=== PATIENT | male | born 1940 | race Caucasian/White ===

== ENCOUNTER 2017-06-02 18:29 | Emergency (ER) | payer MEDICARE, OTHER ==
[~2017-06-02 18:29] MED LIST: CARBINOXAMINE MA4 MG PO; CYPROHEPTADINE H4 MG PO; HYDRALAZINE HCL10 MG PO; HYDRALAZINE HCL25 MG PO; HYDROXYZINE HCL25 MG PO; LOTREL; MECLIZINE HCL25 MG PO; OMEGA 3 1,0001 EACH; SIMVASTATIN; SLOW FE PO; VITAMIN D; Z.0.AMLODIPINE BESYL PO; Z.0.KEFLEX500 MG; Z.0.MULTAQ400 MG PO; Z.0.PROTONIX40 MG PO; Z.0.SIMVASTATIN10 MG PO; Z.0.TOPROL XL25 MG PO; [UNRECOGNIZED DRUG - OTHER] PO; [UNRECOGNIZED DRUG - OTHER] PO; [UNRECOGNIZED DRUG - OTHER] PO
== END 2017-06-02 18:40 | disposition short-term general hospital (02) ==
LOC: ER 18:29
DX: R58 Hemorrhage, not elsewhere classified (principal)

== ENCOUNTER → 2017-10-06 | Outpatient (CLI) | payer MEDICARE, OTHER ==
--- NOTE | 2017-10-06 12:10 | Diagnostic Imaging Report ---
PROCEDURE: Frontal and lateral views of the chest. COMPARISON: Chest radiograph 07/07/[address] 11/16/2010 INDICATIONS: FALL, CHEST PAIN FINDINGS: Lines/tubes: None. Lungs: The lungs are well inflated. Previously noted nodular opacity noted over the left lung base is currently not well-visualized. Stable right upper lobe calcified granuloma. There is no evidence of pneumonia or pulmonary edema. Pleura: There is no pleural effusion or pneumothorax. Heart and mediastinum: The heart and the mediastinum are normal. Bones: No acute bony abnormality. Lower cervical fusion hardware. A linear radiopaque density projects over the left upper chest which is located in the medial upper anterior chest wall on CT likely representing an abandoned portion of a catheter. IMPRESSION: No acute cardiopulmonary disease. Dictated by: Junior Malave M.D. on 10/06/2017 at 12:15 Electronically approved by: Junior Malave M.D. on 10/06/2017 at 12:15
--- NOTE | 2017-10-06 12:18 | Diagnostic Imaging Report ---
PROCEDURE:HIP LEFT 2-3 VW (+/- PELVIS) COMPARISON:None. INDICATIONS:FALL, LEFT HIP PAIN FINDINGS: BONES: Normal mineralization. No acute fracture or dislocation. Mild degenerative changes of the left hip. SOFT TISSUES: Vascular calcifications. Numerous surgical clips in the pelvis. CONCLUSION: No acute osseous abnormalities. Dictated by: Junior Malave M.D. on 10/06/2017 at 12:22 Electronically approved by: Junior Malave M.D. on 10/06/2017 at 12:22
--- NOTE | 2017-10-06 12:23 | Diagnostic Imaging Report ---
PROCEDURE:L-SPINE COMPLETE COMPARISON:Lumbar spine MRI 07/27/2016 INDICATIONS:FALL, LOWER BACK PAIN FINDINGS: There are 5 lumbar-type vertebral bodies. 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 There are no fractures, lytic or blastic lesions. Mild to moderate disc space narrowing at all levels, worse from L3-S1. The sacroiliac joints are unremarkable. Numerous surgical clips within the pelvis. Diffuse vascular calcifications. A few punctate calcifications projecting over the left renal silhouette may represent renal calculi or vascular calcifications. CONCLUSION: No acute osseous abnormalities. Stable grade II anterolisthesis of L5 on S1 when compared to MRI 07/27/2016 related to bilateral L5 pars defects. ictated by: Junior Malave M.D. on 10/06/2017 at 12:28 Electronically approved by: Junior Malave M.D. on 10/06/2017 at 12:28
== END ==
LOC: RAD 10:57
PROVIDERS: ATTEND Internal Medicine Cardiovascular Disease
DX: M25.552 Pain in left hip (principal); M54.5 Low back pain; R07.9 Chest pain, unspecified; R51 Headache; W18.39XA Other fall on same level, initial encounter
CPT/HCPCS: 71046; 72110

== ENCOUNTER 2019-05-16 09:51 | Outpatient (RCR) | payer MEDICARE, BC | END 2019-06-01 | LOC: ST 09:51 | PROVIDERS: ATTEND Internal Medicine | DX: R47.1 Dysarthria and anarthria (principal); R47.9 Unspecified speech disturbances ==

== ENCOUNTER 2020-06-02 11:26 | Inpatient (IN) | payer MEDICARE, OTHER ==
[~2020-06-02] VITALS: Ht 177.8 cm; Wt 83.9 kg
[~2020-06-02 11:26] MED LIST changes: -OMEGA 3 1,0001 EACH; +OMEGA 3 1,0001 EACH PO
[2020-06-02 13:06] LABS: BASOPHILS # (AUTO) 0.1 (0.0-0.1); BASOPHILS % 0.5 % (0.0-1.0); EOSINOPHILS # (AUTO) 0.5 (0.0-0.4); EOSINOPHILS % 4.5 % (0.0-6.0); HEMATOCRIT 38.1 % (38.2-49.6); HEMOGLOBIN 12.3 g/dL (14.0-18.0); LYMPHOCYTES # (AUTO) 1.4 (1.0-3.2); LYMPHOCYTES % 13.2 % (18.0-39.1); MEAN CORPUSCULAR HEMOGLOBIN 27.2 pg (28-32); MEAN CORPUSCULAR HGB CONC 32.3 g/dL (31-35); MEAN CORPUSCULAR VOLUME 84.3 fL (81-99); MONOCYTES # (AUTO) 0.9 (0.2-0.8); MONOCYTES % 8.6 % (4.4-11.3); NEUTROPHILS # (AUTO) 7.8 (2.1-6.9); NEUTROPHILS % 72.6 % (38.7-80.0); PLATELET COUNT 230 x10e3/uL (140-360); RED BLOOD COUNT 4.52 x10e6/uL (4.3-5.7); RED CELL DISTRIBUTION WIDTH 16.1 % (11.7-14.4)
[2020-06-02 13:31] LABS: ANION GAP 14.2 mmol/L (8-16); CALCIUM 8.9 mg/dL (8.4-10.2); CREATININE, SERUM 1.2 mg/dL (0.72-1.25); POTASSIUM 4.2 mmol/L (3.5-5.1)
[2020-06-02 17:37] VITALS: BP 180/80
[2020-06-02 18:22] VITALS: BP 180/80
[2020-06-02 18:29] VITALS: BP 180/80
[2020-06-02 18:30] VITALS: BP 180/80
[2020-06-02] MEDS ORDERED: HYDRALAZINE HCL 20 MG/ML VIAL IV PRN (19:30)
[2020-06-02] MEDS ORDERED: ONDANSETRON HCL INJ 2MG/ML 2ML 2 MG/ML VIAL IV PRN (19:30)
[2020-06-02] MEDS ORDERED: ACETAMINOPHEN 325 MG TAB PO PRN (19:30)
[2020-06-02] MEDS ORDERED: MORPHINE SULFATE INJ 2 MG/ML SYR IV PRN (19:30)
[2020-06-02 20:13] VITALS: BP 120/67
[2020-06-02 20:18] VITALS: BP 128/67
[2020-06-02] MEDS: DRONEDARONE 400 MG TAB PO SCH (20:41)
[2020-06-02] MEDS: AMLODIPINE BESYLATE 5 MG TAB PO SCH (20:42)
[2020-06-02] MEDS: HYDRALAZINE HCL 25 MG TAB PO SCH (22:35)
[2020-06-03] VITALS (8 sets, daily range): BP systolic 110–164; BP diastolic 51–79
[2020-06-03 05:08] LABS: BASOPHILS # (AUTO) 0.1 (0.0-0.1); BASOPHILS % 0.5 % (0.0-1.0); EOSINOPHILS # (AUTO) 0.6 (0.0-0.4); EOSINOPHILS % 5.9 % (0.0-6.0); HEMOGLOBIN 12.3 g/dL (14.0-18.0); LYMPHOCYTES # (AUTO) 1.5 (1.0-3.2); LYMPHOCYTES % 15.5 % (18.0-39.1); MEAN CORPUSCULAR HEMOGLOBIN 27.5 pg (28-32); MEAN CORPUSCULAR HGB CONC 32.4 g/dL (31-35); MONOCYTES % 10.1 % (4.4-11.3); NEUTROPHILS # (AUTO) 6.4 (2.1-6.9); NEUTROPHILS % 67.5 % (38.7-80.0); PLATELET COUNT 220 x10e3/uL (140-360); RED BLOOD COUNT 4.47 x10e6/uL (4.3-5.7); RED CELL DISTRIBUTION WIDTH 16.1 % (11.7-14.4)
[2020-06-03 05:23] LABS: ANION GAP 14.4 mmol/L (8-16); CREATININE, SERUM 1.47 mg/dL (0.72-1.25); POTASSIUM 4.4 mmol/L (3.5-5.1)
[2020-06-03] MEDS: HYDRALAZINE HCL 25 MG TAB PO SCH ×3 (05:42→21:33)
[2020-06-03] MEDS: DRONEDARONE 400 MG TAB PO SCH ×2 (07:47→16:41)
[2020-06-03] MEDS: METOPROLOL SUCCINATE 25 MG TAB XL PO SCH ×2 (07:48→16:41)
[2020-06-03] MEDS: PANTOPRAZOLE SOD 40 MG TABEC PO SCH (07:48)
[2020-06-03] MEDS ORDERED: AMLODIPINE BESYLATE 5 MG TAB PO SCH (09:00)
[2020-06-03] MEDS: DEXTROSE 5%/0.45% SOD CHL 1,000 ML IV SCH ×2 (10:24→21:34)
[2020-06-03] MEDS ORDERED: ONDANSETRON HCL 4 MG ORAL DISINTEGRATING TAB PO PRN (10:30)
[2020-06-03] MEDS ORDERED: TEMAZEPAM 7.5 MG CAP PO PRN (15:15)
[2020-06-03] MEDS: DOCUSATE SODIUM 100 MG CAP PO SCH (16:40)
[2020-06-03 16:52] LABS: CLARITY,URINE SL CLOUDY (CLEAR); COLOR,URINE YELLOW (YELLOW); LEUKOCYTE ESTERASE ,URINE SMALL (NEGATIVE); NITRITE,URINE NEGATIVE (NEGATIVE)
[2020-06-03 16:53] LABS: KETONES,URINE NEGATIVE (NEGATIVE); PROTEIN,URINE DIPSTICK NEGATIVE (NEGATIVE); URINE UROBILINOGEN 0.2 mg/dL (0.2 - 1)
[2020-06-03 17:01] LABS: BACTERIA,URINE MANY /HPF
[2020-06-03] MEDS ORDERED: TEMAZEPAM 15 MG CAP PO PRN (21:00)
[2020-06-03] MEDS ORDERED: SIMVASTATIN 20 MG TAB PO SCH (21:00)
[2020-06-03] MEDS: AMLODIPINE BESYLATE 5 MG TAB PO SCH (21:33)
[2020-06-04] VITALS (8 sets, daily range): BP systolic 122–147; BP diastolic 61–71
[2020-06-04 05:03] LABS: BASOPHILS % 0.4 % (0.0-1.0); EOSINOPHILS # (AUTO) 0.4 (0.0-0.4); EOSINOPHILS % 4.2 % (0.0-6.0); HEMATOCRIT 37.5 % (38.2-49.6); LYMPHOCYTES # (AUTO) 1.6 (1.0-3.2); LYMPHOCYTES % 14.8 % (18.0-39.1); MEAN CORPUSCULAR HEMOGLOBIN 27.1 pg (28-32); MEAN CORPUSCULAR VOLUME 84.7 fL (81-99); MONOCYTES # (AUTO) 1.1 (0.2-0.8); NEUTROPHILS # (AUTO) 7.3 (2.1-6.9); NEUTROPHILS % 70.1 % (38.7-80.0); PLATELET COUNT 223 x10e3/uL (140-360); RED BLOOD COUNT 4.43 x10e6/uL (4.3-5.7); RED CELL DISTRIBUTION WIDTH 15.6 % (11.7-14.4)
[2020-06-04] MEDS: HYDRALAZINE HCL 25 MG TAB PO SCH ×3 (05:32→21:00)
[2020-06-04 05:41] LABS: THYROID STIMULATING HORMONE 1.691 uIU/mL (0.350-4.940)
[2020-06-04 06:15] LABS: ALBUMIN 2.9 g/dL (3.5-5.0); ALBUMIN/GLOBULIN RATIO 0.7 (0.8-2.0); ANION GAP 15.4 mmol/L (8-16); CALCIUM 8.7 mg/dL (8.4-10.2); CHOL/HDL RATIO 3.3 (3.9-4.7); CREATININE, SERUM 1.34 mg/dL (0.72-1.25); MAGNESIUM 1.7 MG/DL (1.3-2.1); PHOSPHORUS 3.4 MG/DL (2.3-4.7); POTASSIUM 4.4 mmol/L (3.5-5.1)
[2020-06-04] MEDS: PANTOPRAZOLE SOD 40 MG TABEC PO SCH (08:19)
[2020-06-04] MEDS: DOCUSATE SODIUM 100 MG CAP PO SCH ×2 (08:19→17:05)
[2020-06-04] MEDS: DULOXETINE HCL 20 MG DELAYED RELEASE PO SCH (08:19)
[2020-06-04] MEDS: DRONEDARONE 400 MG TAB PO SCH ×2 (08:20→17:05)
[2020-06-04] MEDS: METOPROLOL SUCCINATE 25 MG TAB XL PO SCH ×2 (08:21→17:06)
[2020-06-04] MEDS: DEXTROSE 5%/0.45% SOD CHL 1,000 ML IV SCH ×2 (08:25→21:00)
[2020-06-04] MEDS: AMLODIPINE BESYLATE 5 MG TAB PO SCH (20:59)
[2020-06-05] VITALS (9 sets, daily range): BP systolic 123–170; BP diastolic 56–75
[2020-06-05 05:55] LABS: BASOPHILS # (AUTO) 0.1 (0.0-0.1); BASOPHILS % 0.4 % (0.0-1.0); EOSINOPHILS # (AUTO) 0.2 (0.0-0.4); EOSINOPHILS % 1.3 % (0.0-6.0); HEMATOCRIT 39.3 % (38.2-49.6); HEMOGLOBIN 12.7 g/dL (14.0-18.0); LYMPHOCYTES # (AUTO) 0.8 (1.0-3.2); LYMPHOCYTES % 5.5 % (18.0-39.1); MEAN CORPUSCULAR HEMOGLOBIN 26.8 pg (28-32); MEAN CORPUSCULAR HGB CONC 32.3 g/dL (31-35); MEAN CORPUSCULAR VOLUME 82.9 fL (81-99); MONOCYTES # (AUTO) 1.2 (0.2-0.8); MONOCYTES % 8.3 % (4.4-11.3); NEUTROPHILS # (AUTO) 11.9 (2.1-6.9); NEUTROPHILS % 83.9 % (38.7-80.0); PLATELET COUNT 256 x10e3/uL (140-360); RED BLOOD COUNT 4.74 x10e6/uL (4.3-5.7); RED CELL DISTRIBUTION WIDTH 15.7 % (11.7-14.4)
[2020-06-05 06:03] LABS: ANION GAP 13.6 mmol/L (8-16); CALCIUM 8.6 mg/dL (8.4-10.2); CREATININE, SERUM 1.27 mg/dL (0.72-1.25); POTASSIUM 4.6 mmol/L (3.5-5.1)
[2020-06-05] MEDS: HYDRALAZINE HCL 25 MG TAB PO SCH ×3 (06:10→21:02)
[2020-06-05] MEDS: DULOXETINE HCL 20 MG DELAYED RELEASE PO SCH (08:00)
[2020-06-05] MEDS: DOCUSATE SODIUM 100 MG CAP PO SCH ×2 (08:00→17:12)
[2020-06-05] MEDS: METOPROLOL SUCCINATE 25 MG TAB XL PO SCH ×2 (08:01→17:00)
[2020-06-05] MEDS: PANTOPRAZOLE SOD 40 MG TABEC PO SCH (08:01)
[2020-06-05] MEDS: DRONEDARONE 400 MG TAB PO SCH ×2 (08:01→17:00)
[2020-06-05] MEDS: POLYETHYLENE GLYCOL 3350 17 GM PACK PO PRN (08:03)
[2020-06-05] MEDS: DEXTROSE 5%/0.45% SOD CHL 1,000 ML IV SCH (09:37)
[2020-06-05] MEDS ORDERED: CEFTRIAXONE SOD 1 GM/50 ML BAG IV SCH (18:45)
[2020-06-05] MEDS ORDERED: CEFTRIAXONE SOD 1 GM in SODIUM CHLORIDE 0.9% 50ML 50 ML IV SCH (18:45)
[2020-06-05] MEDS: AMLODIPINE BESYLATE 5 MG TAB PO SCH (21:00)
[2020-06-06] MEDS: DEXTROSE 5%/0.45% SOD CHL 1,000 ML IV SCH (03:39)
[2020-06-06 03:54] VITALS: BP 136/60
[2020-06-06] MEDS: HYDRALAZINE HCL 25 MG TAB PO SCH (06:00)
[2020-06-06 06:25] LABS: BASOPHILS % 0.4 % (0.0-1.0); EOSINOPHILS # (AUTO) 0.4 (0.0-0.4); EOSINOPHILS % 4.2 % (0.0-6.0); HEMATOCRIT 36.2 % (38.2-49.6); HEMOGLOBIN 11.6 g/dL (14.0-18.0); LYMPHOCYTES # (AUTO) 1.5 (1.0-3.2); LYMPHOCYTES % 15.9 % (18.0-39.1); MEAN CORPUSCULAR VOLUME 84.4 fL (81-99); MONOCYTES % 10.3 % (4.4-11.3); NEUTROPHILS # (AUTO) 6.4 (2.1-6.9); NEUTROPHILS % 68.9 % (38.7-80.0); PLATELET COUNT 203 x10e3/uL (140-360); RED BLOOD COUNT 4.29 x10e6/uL (4.3-5.7)
[2020-06-06 06:47] LABS: ANION GAP 12.5 mmol/L (8-16); CALCIUM 8.4 mg/dL (8.4-10.2); CREATININE, SERUM 1.2 mg/dL (0.72-1.25); POTASSIUM 4.5 mmol/L (3.5-5.1)
[2020-06-06 07:27] VITALS: BP 137/59
[2020-06-06] MEDS: POLYETHYLENE GLYCOL 3350 17 GM PACK PO PRN (07:37)
[2020-06-06 07:46] VITALS: BP 137/59
[2020-06-06] MEDS: METOPROLOL SUCCINATE 25 MG TAB XL PO SCH (08:01)
[2020-06-06] MEDS: DULOXETINE HCL 20 MG DELAYED RELEASE PO SCH (08:06)
[2020-06-06] MEDS: PANTOPRAZOLE SOD 40 MG TABEC PO SCH (08:06)
[2020-06-06] MEDS: DOCUSATE SODIUM 100 MG CAP PO SCH (08:06)
[2020-06-06] MEDS: DRONEDARONE 400 MG TAB PO SCH (08:06)
[2020-06-06] MEDS ORDERED: BALSAM PERU/CASTOR OIL 60 GM OINT...G. TP SCH ×2 (09:00)
== END 2020-06-06 11:55 | DRG 535 ==
LOC: ER 11:30 → ERHOLD 15:10 → MED/SURG 17:00
PROVIDERS: ADMIT Internal Medicine; ATTEND Internal Medicine
DX: S32.601A Unspecified fracture of right ischium, initial encounter for closed fracture (principal); G93.41 Metabolic encephalopathy; S82.045A Nondisplaced comminuted fracture of left patella, initial encounter for closed fracture; N39.0 Urinary tract infection, site not specified; I48.92 Unspecified atrial flutter; N17.9 Acute kidney failure, unspecified; W19.XXXA Unspecified fall, initial encounter; E86.0 Dehydration; F43.23 Adjustment disorder with mixed anxiety and depressed mood; Z79.01 Long term (current) use of anticoagulants; Z85.51 Personal history of malignant neoplasm of bladder; Z20.822 Contact with and (suspected) exposure to COVID-19; B96.20 Unspecified Escherichia coli [E. coli] as the cause of diseases classified elsewhere; I12.9 Hypertensive chronic kidney disease with stage 1 through stage 4 chronic kidney disease, or unspecified chronic kidney disease; N18.9 Chronic kidney disease, unspecified
CPT/HCPCS: 36415; 70450; 71045; 72192; 80048; 80053; 80061; 81001; 82140; 83036; 83735; 84100; 84443; 85025; 87086; 87186; 96361; 97139; 99251; 99285; J0696; Q0162; U0002

== ENCOUNTER → 2020-10-07 | Outpatient (CLI) | payer MEDICARE, OTHER ==
[2020-10-07 07:54] LABS: BASOPHILS # (AUTO) 0.1 (0.0-0.1); BASOPHILS % 0.7 % (0.0-1.0); EOSINOPHILS # (AUTO) 0.6 (0.0-0.4); EOSINOPHILS % 7.1 % (0.0-6.0); HEMATOCRIT 45.5 % (38.2-49.6); HEMOGLOBIN 14.5 g/dL (14.0-18.0); LYMPHOCYTES # (AUTO) 2.2 (1.0-3.2); LYMPHOCYTES % 24.6 % (18.0-39.1); MEAN CORPUSCULAR HEMOGLOBIN 26.6 pg (28-32); MEAN CORPUSCULAR HGB CONC 31.9 g/dL (31-35); MEAN CORPUSCULAR VOLUME 83.3 fL (81-99); MONOCYTES # (AUTO) 0.6 (0.2-0.8); MONOCYTES % 7.1 % (4.4-11.3); NEUTROPHILS # (AUTO) 5.4 (2.1-6.9); NEUTROPHILS % 60.1 % (38.7-80.0); PLATELET COUNT 225 x10e3/uL (140-360); RED BLOOD COUNT 5.46 x10e6/uL (4.3-5.7); RED CELL DISTRIBUTION WIDTH 16.4 % (11.7-14.4)
[2020-10-07 08:12] LABS: ALBUMIN 3.8 g/dL (3.5-5.0); ANION GAP 13.3 mmol/L (8-16); BILIRUBIN,DIRECT 0.3 mg/dL (0.0-0.5); CALCIUM 9.6 mg/dL (8.4-10.2); CHOL/HDL RATIO 2.6 (3.9-4.7); CREATININE, SERUM 1.37 mg/dL (0.72-1.25); POTASSIUM 4.3 mmol/L (3.5-5.1)
== END ==
LOC: RAD 07:19
PROVIDERS: ATTEND Internal Medicine Cardiovascular Disease
DX: R06.89 Other abnormalities of breathing (principal)
CPT/HCPCS: 36415; 71046; 80048; 80061; 80076; 85025

== ENCOUNTER 2021-02-13 12:03 | Emergency (ER) | payer MEDICARE, OTHER ==
[~2021-02-13] VITALS: Ht 330.2 cm; Wt 83.9 kg
[2021-02-13 13:03] LABS: BASOPHILS # (AUTO) 0.1 (0.0-0.1); BASOPHILS % 0.4 % (0.0-1.0); EOSINOPHILS # (AUTO) 0.2 (0.0-0.4); EOSINOPHILS % 1.3 % (0.0-6.0); HEMATOCRIT 46.3 % (38.2-49.6); HEMOGLOBIN 14.7 g/dL (14.0-18.0); LYMPHOCYTES # (AUTO) 1.8 (1.0-3.2); LYMPHOCYTES % 14.1 % (18.0-39.1); MEAN CORPUSCULAR HEMOGLOBIN 27.7 pg (28-32); MEAN CORPUSCULAR HGB CONC 31.7 g/dL (31-35); MEAN CORPUSCULAR VOLUME 87.4 fL (81-99); MONOCYTES # (AUTO) 1.4 (0.2-0.8); MONOCYTES % 10.8 % (4.4-11.3); NEUTROPHILS # (AUTO) 9.4 (2.1-6.9); NEUTROPHILS % 72.9 % (38.7-80.0); PLATELET COUNT 209 x10e3/uL (140-360); RED CELL DISTRIBUTION WIDTH 14.8 % (11.7-14.4)
[2021-02-13 13:06] LABS: ALBUMIN 3.6 g/dL (3.5-5.0); ALBUMIN/GLOBULIN RATIO 0.8 (0.8-2.0); ANION GAP 14.5 mmol/L (8-16); CALCIUM 9.2 mg/dL (8.4-10.2); CREATININE, SERUM 1.89 mg/dL (0.72-1.25); POTASSIUM 4.5 mmol/L (3.5-5.1)
[2021-02-13] MEDS ORDERED: PROAIR HFA INH8.5 GM PO (13:19)
[2021-02-13] MEDS ORDERED: PEPCID20 MG PO (13:22)
[2021-02-13] MEDS ORDERED: DOCUSATE SODIU100 MG PO (13:22)
[2021-02-13] MEDS ORDERED: TRIAMTERENE-HCTZ1 EA PO (13:24)
[2021-02-13] MEDS ORDERED: VITAMIN D32400 UNIT/ PO (13:24)
[2021-02-13] MEDS ORDERED: KETOCONAZOLE15 GM TOP (13:24)
[2021-02-13 13:32] LABS: CLARITY,URINE CLOUDY (CLEAR); COLOR,URINE YELLOW (YELLOW); LEUKOCYTE ESTERASE ,URINE LARGE (NEGATIVE); NITRITE,URINE POSITIVE (NEGATIVE)
[2021-02-13 13:33] LABS: KETONES,URINE NEGATIVE (NEGATIVE); PROTEIN,URINE DIPSTICK 2+ (NEGATIVE); URINE UROBILINOGEN 0.2 mg/dL (0.2 - 1)
[2021-02-13 13:49] LABS: BACTERIA,URINE FEW /HPF; EPITHELIAL CELLS,URINE FEW /LPF; RBC,URINE 21-50 /HPF (0-5)
[2021-02-13] MEDS ORDERED: CEPHALEXIN500 MG PO (14:45)
== END 2021-02-13 15:28 | disposition home or self-care (01) ==
LOC: ER 12:12
DX: R10.84 Generalized abdominal pain (principal); N39.0 Urinary tract infection, site not specified; K21.9 Gastro-esophageal reflux disease without esophagitis; Z85.51 Personal history of malignant neoplasm of bladder; Z87.448 Personal history of other diseases of urinary system
CPT/HCPCS: 36415; 70450; 71045; 80053; 81001; 84484; 85025; 87086; 87186; 93005; 99284

== ENCOUNTER 2021-04-21 10:01 | Inpatient (IN) | payer MEDICARE, OTHER ==
[~2021-04-21] VITALS: Ht 330.2 cm; Wt 83.9 kg
[~2021-04-21 10:01] MED LIST changes: +CEPHALEXIN500 MG PO; +DOCUSATE SODIU100 MG PO; +KETOCONAZOLE15 GM TOP; +PEPCID20 MG PO; +PROAIR HFA INH8.5 GM PO; +TRIAMTERENE-HCTZ1 EA PO; +VITAMIN D32400 UNIT/ PO
[2021-04-21] MEDS ORDERED: SODIUM CHLORIDE 0.9% 1000ML 1,000 ML IV STA (10:23)
[2021-04-21] MEDS ORDERED: CEFTRIAXONE 1 GM in SODIUM CHLORIDE 0.9% 50ML 50 ML IV ONE (10:30)
[2021-04-21 10:33] LABS: BASOPHILS % 0.3 % (0.0-1.0); EOSINOPHILS % 0.2 % (0.0-6.0); HEMATOCRIT 44.2 % (38.2-49.6); HEMOGLOBIN 13.9 g/dL (14.0-18.0); MEAN CORPUSCULAR HEMOGLOBIN 27.4 pg (28-32); MEAN CORPUSCULAR HGB CONC 31.4 g/dL (31-35); MONOCYTES # (AUTO) 1.2 (0.2-0.8); MONOCYTES % 9.7 % (4.4-11.3); NEUTROPHILS # (AUTO) 10.3 (2.1-6.9); NEUTROPHILS % 81.3 % (38.7-80.0); PLATELET COUNT 173 x10e3/uL (140-360); RED BLOOD COUNT 5.08 x10e6/uL (4.3-5.7); RED CELL DISTRIBUTION WIDTH 15.4 % (11.7-14.4)
[2021-04-21 10:54] LABS: CLARITY,URINE CLOUDY (CLEAR); COLOR,URINE YELLOW (YELLOW)
[2021-04-21 10:55] LABS: KETONES,URINE NEGATIVE (NEGATIVE); LEUKOCYTE ESTERASE ,URINE LARGE (NEGATIVE); NITRITE,URINE POSITIVE (NEGATIVE); PROTEIN,URINE DIPSTICK 2+ (NEGATIVE); URINE UROBILINOGEN 0.2 mg/dL (0.2 - 1)
[2021-04-21 11:01] LABS: ALBUMIN 3.6 g/dL (3.5-5.0); ALBUMIN/GLOBULIN RATIO 0.8 (0.8-2.0); ANION GAP 15.6 mmol/L (8-16); CALCIUM 9.7 mg/dL (8.4-10.2); CREATININE, SERUM 2.07 mg/dL (0.72-1.25); POTASSIUM 4.6 mmol/L (3.5-5.1)
[2021-04-21] MEDS ORDERED: ALBUTEROL/IPRATROPIUM 3 ML NEB NEB ONE (11:45)
[2021-04-21 11:54] LABS: AMORPHOUS SEDIMENT,URINE MODERATE (FEW); BACTERIA,URINE MANY /HPF; EPITHELIAL CELLS,URINE FEW /LPF; WBC,URINE (MAN) >50 /HPF (0-5)
[2021-04-21] MEDS ORDERED: ALBUTEROL SULFATE HFA 8GM INHALATION AEROSOL INH PRN (13:30)
[2021-04-21] MEDS ORDERED: ACETAMINOPHEN 325 MG TAB PO PRN (13:45)
[2021-04-21 16:24] VITALS: BP 144/65
[2021-04-21] MEDS ORDERED: PIPERACILLIN/TAZOBACTAM 3.375 GM in SODIUM CHLORIDE 0.9% 50ML 50 ML IV SCH (18:00)
[2021-04-21 18:05] VITALS: BP 144/65
[2021-04-21] MEDS: KETOCONAZOLE 2% CREAM/15 GM TUBE TOP SCH (18:16)
[2021-04-21] MEDS: DOCUSATE SODIUM 100 MG CAP PO SCH (18:16)
[2021-04-21] MEDS: HYDRALAZINE HCL 25 MG TAB PO SCH ×2 (18:16→21:00)
[2021-04-21 20:00] VITALS: BP 109/63
[2021-04-21] MEDS ORDERED: AMLODIPINE BESYLATE 5 MG TAB PO SCH (21:00)
[2021-04-22] VITALS (7 sets, daily range): BP systolic 100–139; BP diastolic 65–86
[2021-04-22 05:48] LABS: BASOPHILS # (AUTO) 0.1 (0.0-0.1); BASOPHILS % 0.4 % (0.0-1.0); EOSINOPHILS % 0.1 % (0.0-6.0); HEMATOCRIT 42.8 % (38.2-49.6); HEMOGLOBIN 13.6 g/dL (14.0-18.0); LYMPHOCYTES # (AUTO) 1.8 (1.0-3.2); LYMPHOCYTES % 12.4 % (18.0-39.1); MEAN CORPUSCULAR HEMOGLOBIN 27.6 pg (28-32); MEAN CORPUSCULAR HGB CONC 31.8 g/dL (31-35); MEAN CORPUSCULAR VOLUME 86.8 fL (81-99); MONOCYTES % 13.5 % (4.4-11.3); NEUTROPHILS # (AUTO) 10.7 (2.1-6.9); NEUTROPHILS % 73.1 % (38.7-80.0); PLATELET COUNT 156 x10e3/uL (140-360); RED BLOOD COUNT 4.93 x10e6/uL (4.3-5.7); RED CELL DISTRIBUTION WIDTH 15.5 % (11.7-14.4)
[2021-04-22 06:23] LABS: ANION GAP 15.7 mmol/L (8-16); CALCIUM 9.7 mg/dL (8.4-10.2); CREATININE, SERUM 2.48 mg/dL (0.72-1.25); POTASSIUM 4.7 mmol/L (3.5-5.1)
[2021-04-22] MEDS: DRONEDARONE 400 MG TAB PO SCH (07:30)
[2021-04-22] MEDS: DOCUSATE SODIUM 100 MG CAP PO SCH ×2 (09:00→17:00)
[2021-04-22] MEDS ORDERED: METOPROLOL SUCCINATE 25 MG TAB XL PO SCH (09:00)
[2021-04-22] MEDS ORDERED: CEFTRIAXONE 2 GM in SODIUM CHLORIDE 0.9% 100 ML IV SCH (09:00)
[2021-04-22] MEDS: CHOLECALCIFEROL 1,000 UNIT TAB PO SCH (09:00)
[2021-04-22] MEDS: HYDRALAZINE HCL 25 MG TAB PO SCH (09:00)
[2021-04-22] MEDS: FAMOTIDINE 20 MG TAB PO SCH (09:00)
[2021-04-22] MEDS ORDERED: ASPIRIN 325 MG TAB PO SCH (10:00)
[2021-04-22] MEDS: OMEGA 3 POLYUNSAT FATTY ACIDS 1000 MG SOFTGEL PO SCH ×2 (10:00→17:00)
[2021-04-22] MEDS: CEFTRIAXONE 2 GM in SODIUM CHLORIDE 0.9% 100 ML IV SCH (10:50)
[2021-04-22] MEDS ORDERED: METOPROLOL TARTRATE INJ 1 MG/ML VIAL IV PRN (11:30)
[2021-04-22] MEDS ORDERED: METOPROLOL SUCCINATE 25 MG TAB XL PO ONE (12:30)
[2021-04-22] MEDS: APIXAB 2.5 MG TABLET PO SCH ×2 (15:14→21:00)
[2021-04-22] MEDS: KETOCONAZOLE 2% CREAM/15 GM TUBE TOP SCH ×2 (17:00→17:44)
[2021-04-22] MEDS: METOPROLOL SUCCINATE 50 MG TAB XL PO SCH (21:00)
[2021-04-23] VITALS (8 sets, daily range): BP systolic 94–128; BP diastolic 51–84
[2021-04-23 06:17] LABS: BASOPHILS % 0.3 % (0.0-1.0); EOSINOPHILS # (AUTO) 0.1 (0.0-0.4); EOSINOPHILS % 1.1 % (0.0-6.0); HEMATOCRIT 40.3 % (38.2-49.6); HEMOGLOBIN 12.9 g/dL (14.0-18.0); LYMPHOCYTES # (AUTO) 1.9 (1.0-3.2); LYMPHOCYTES % 15.4 % (18.0-39.1); MEAN CORPUSCULAR HEMOGLOBIN 27.4 pg (28-32); MEAN CORPUSCULAR VOLUME 85.6 fL (81-99); MONOCYTES # (AUTO) 1.9 (0.2-0.8); MONOCYTES % 15.5 % (4.4-11.3); NEUTROPHILS # (AUTO) 8.1 (2.1-6.9); NEUTROPHILS % 67.2 % (38.7-80.0); PLATELET COUNT 151 x10e3/uL (140-360); RED BLOOD COUNT 4.71 x10e6/uL (4.3-5.7); RED CELL DISTRIBUTION WIDTH 15.2 % (11.7-14.4)
[2021-04-23 06:47] LABS: ALBUMIN 2.7 g/dL (3.5-5.0); ALBUMIN/GLOBULIN RATIO 0.6 (0.8-2.0); ANION GAP 14.3 mmol/L (8-16); CHOL/HDL RATIO 3.6 (3.9-4.7); CREATININE, SERUM 2.26 mg/dL (0.72-1.25); MAGNESIUM 1.8 MG/DL (1.3-2.1); PHOSPHORUS 2.8 MG/DL (2.3-4.7); POTASSIUM 4.3 mmol/L (3.5-5.1)
[2021-04-23 07:08] LABS: B-TYPE NATRIURETIC PEPTIDE2 153.4 pg/mL (0-100)
[2021-04-23 07:17] LABS: THYROID STIMULATING HORMONE 1.517 uIU/mL (0.350-4.940)
[2021-04-23] MEDS: DRONEDARONE 400 MG TAB PO SCH (08:45)
[2021-04-23] MEDS: METOPROLOL SUCCINATE 50 MG TAB XL PO SCH (09:00)
[2021-04-23] MEDS ORDERED: ASPIRIN 81 MG CHEW TAB PO SCH (09:00)
[2021-04-23] MEDS: CEFTRIAXONE 2 GM in SODIUM CHLORIDE 0.9% 100 ML IV SCH (09:41)
[2021-04-23] MEDS: DOCUSATE SODIUM 100 MG CAP PO SCH ×2 (09:42→17:02)
[2021-04-23] MEDS: OMEGA 3 POLYUNSAT FATTY ACIDS 1000 MG SOFTGEL PO SCH ×2 (09:42→17:02)
[2021-04-23] MEDS: APIXAB 2.5 MG TABLET PO SCH (09:42)
[2021-04-23] MEDS: CHOLECALCIFEROL 1,000 UNIT TAB PO SCH (09:42)
[2021-04-23] MEDS: FAMOTIDINE 20 MG TAB PO SCH (09:42)
[2021-04-23] MEDS: KETOCONAZOLE 2% CREAM/15 GM TUBE TOP SCH ×2 (10:00→17:02)
[2021-04-23] MEDS ORDERED: SODIUM CHLORIDE 0.9% 250ML 250 ML ONE (10:01)
[2021-04-23] MEDS ORDERED: FUROSEMIDE INJ 10 MG/ML 2 ML VIAL IV ONE (15:30)
== END 2021-04-23 22:17 | DRG 871 ==
LOC: ER 10:15 → ERHOLD 12:39 → MED/SURG3 13:59
PROVIDERS: ADMIT Internal Medicine; ATTEND Internal Medicine
DX: A41.9 Sepsis, unspecified organism (principal); J69.0 Pneumonitis due to inhalation of food and vomit; G93.41 Metabolic encephalopathy; N39.0 Urinary tract infection, site not specified; N17.9 Acute kidney failure, unspecified; I69.351 Hemiplegia and hemiparesis following cerebral infarction affecting right dominant side; I48.0 Paroxysmal atrial fibrillation; Z79.01 Long term (current) use of anticoagulants; I12.9 Hypertensive chronic kidney disease with stage 1 through stage 4 chronic kidney disease, or unspecified chronic kidney disease; N18.30 Chronic kidney disease, stage 3 unspecified; C67.9 Malignant neoplasm of bladder, unspecified; R65.20 Severe sepsis without septic shock; Z20.822 Contact with and (suspected) exposure to COVID-19; I69.320 Aphasia following cerebral infarction; F03.90 Unspecified dementia, unspecified severity, without behavioral disturbance, psychotic disturbance, mood disturbance, and anxiety
CPT/HCPCS: 36415; 70450; 71045; 74230; 80048; 80053; 80061; 81001; 83036; 83605; 83735; 83880; 84100; 84443; 85025; 87040; 87086; 87186; 93005; 93306; 94640; 94799; 97139; 99251; 99285; J0696; J1940; J7030; J7050; U0002

== ENCOUNTER 2021-06-17 14:45 | Inpatient (IN) | payer MEDICARE, OTHER ==
[~2021-06-17] VITALS: Ht 330.2 cm; Wt 83.9 kg
[2021-06-17] MEDS ORDERED: PIPERACILLIN/TAZOBACTAM 2.25 GM in SODIUM CHLORIDE 0.9% 50ML 50 ML IV ONE (15:15)
[2021-06-17 15:24] LABS: BASOPHILS # (AUTO) 0.1 (0.0-0.1); BASOPHILS % 0.5 % (0.0-1.0); EOSINOPHILS # (AUTO) 0.5 (0.0-0.4); EOSINOPHILS % 5.6 % (0.0-6.0); HEMATOCRIT 38.8 % (38.2-49.6); HEMOGLOBIN 12.9 g/dL (14.0-18.0); LYMPHOCYTES # (AUTO) 2.5 (1.0-3.2); MEAN CORPUSCULAR HEMOGLOBIN 28.2 pg (28-32); MEAN CORPUSCULAR HGB CONC 33.2 g/dL (31-35); MEAN CORPUSCULAR VOLUME 84.9 fL (81-99); MONOCYTES % 10.7 % (4.4-11.3); NEUTROPHILS # (AUTO) 5.2 (2.1-6.9); NEUTROPHILS % 55.8 % (38.7-80.0); PLATELET COUNT 217 x10e3/uL (140-360); RED BLOOD COUNT 4.57 x10e6/uL (4.3-5.7); RED CELL DISTRIBUTION WIDTH 14.7 % (11.7-14.4)
[2021-06-17 15:27] LABS: CLARITY,URINE SL CLOUDY (CLEAR); COLOR,URINE YELLOW (YELLOW)
[2021-06-17 15:28] LABS: KETONES,URINE NEGATIVE (NEGATIVE); LEUKOCYTE ESTERASE ,URINE MODERATE (NEGATIVE); NITRITE,URINE NEGATIVE (NEGATIVE); PROTEIN,URINE DIPSTICK 1+ (NEGATIVE); URINE UROBILINOGEN 0.2 mg/dL (0.2 - 1)
[2021-06-17] MEDS ORDERED: Vancomycin IV 1 GM in SODIUM CHLORIDE 0.9% 250ML 250 ML IV ONE (15:30)
[2021-06-17 15:32] LABS: INR 0.89; PROTHROMBIN TIME 12.9 seconds (11.9-14.5)
[2021-06-17 15:33] LABS: PARTIAL THROMBOPLASTIN TIME 28.8 seconds (23.8-35.5)
[2021-06-17 15:40] LABS: ALBUMIN 3.5 g/dL (3.5-5.0); ALBUMIN/GLOBULIN RATIO 0.9 (0.8-2.0); ANION GAP 12.1 mmol/L (8-16); CALCIUM 9.4 mg/dL (8.4-10.2); CREATININE, SERUM 2.19 mg/dL (0.72-1.25); MAGNESIUM 1.8 MG/DL (1.3-2.1); POTASSIUM 5.1 mmol/L (3.5-5.1)
[2021-06-17 15:46] LABS: CREATINE KINASE MB 1.8 ng/mL (0-5.0)
[2021-06-17 15:48] LABS: BACTERIA,URINE MANY /HPF; RBC,URINE 0-5 /HPF (0-5)
[2021-06-17] MEDS: NYSTATIN 15 GM POWDER UD BTL TOP SCH ×2 (15:54→21:00)
[2021-06-17] MEDS ORDERED: ONDANSETRON HCL INJ 2MG/ML 2ML 2 MG/ML VIAL IV PRN (16:00)
[2021-06-17] MEDS ORDERED: SODIUM CHLORIDE 0.9% 1000ML 1,000 ML IV ONE (16:00)
[2021-06-17] MEDS ORDERED: FLUCONAZOLE 200 MG/100 ML 100 ML IV ONE (16:00)
[2021-06-17] MEDS: PIPERACILLIN/TAZOBACTAM 2.25 GM in SODIUM CHLORIDE 0.9% 50ML 50 ML IV SCH (20:59)
[2021-06-17 21:22] VITALS: BP 153/66
[2021-06-17 22:07] VITALS: BP 153/66
[2021-06-18] VITALS (9 sets, daily range): BP systolic 109–162; BP diastolic 66–82
[2021-06-18] MEDS: PIPERACILLIN/TAZOBACTAM 2.25 GM in SODIUM CHLORIDE 0.9% 50ML 50 ML IV SCH ×4 (01:34→21:32)
[2021-06-18 05:34] LABS: BASOPHILS % 0.5 % (0.0-1.0); EOSINOPHILS # (AUTO) 0.5 (0.0-0.4); EOSINOPHILS % 5.9 % (0.0-6.0); HEMATOCRIT 36.9 % (38.2-49.6); HEMOGLOBIN 12.2 g/dL (14.0-18.0); LYMPHOCYTES # (AUTO) 2.2 (1.0-3.2); LYMPHOCYTES % 26.8 % (18.0-39.1); MEAN CORPUSCULAR HEMOGLOBIN 28.2 pg (28-32); MEAN CORPUSCULAR HGB CONC 33.1 g/dL (31-35); MEAN CORPUSCULAR VOLUME 85.2 fL (81-99); MONOCYTES # (AUTO) 0.9 (0.2-0.8); MONOCYTES % 10.6 % (4.4-11.3); NEUTROPHILS # (AUTO) 4.5 (2.1-6.9); NEUTROPHILS % 55.6 % (38.7-80.0); PLATELET COUNT 215 x10e3/uL (140-360); RED BLOOD COUNT 4.33 x10e6/uL (4.3-5.7); RED CELL DISTRIBUTION WIDTH 14.6 % (11.7-14.4)
[2021-06-18 05:46] LABS: ALBUMIN 3.3 g/dL (3.5-5.0); ALBUMIN/GLOBULIN RATIO 0.9 (0.8-2.0); ANION GAP 11.3 mmol/L (8-16); CALCIUM 9.1 mg/dL (8.4-10.2); CREATININE, SERUM 1.76 mg/dL (0.72-1.25); POTASSIUM 4.3 mmol/L (3.5-5.1)
[2021-06-18] MEDS ORDERED: HYDROXYZINE HCL 10 MG TAB PO PRN (09:45)
[2021-06-18] MEDS ORDERED: PANTOPRAZOLE SO20 MG (09:50)
[2021-06-18] MEDS: NYSTATIN 15 GM POWDER UD BTL TOP SCH ×3 (13:28→21:32)
[2021-06-18] MEDS ORDERED: FLUCONAZOLE 100 MG/NS 50 ML 50 ML IV SCH (16:00)
[2021-06-18] MEDS: HYDRALAZINE HCL 25 MG TAB PO SCH ×2 (16:29→21:32)
[2021-06-18] MEDS: DOCUSATE SODIUM 100 MG CAP PO SCH (16:31)
[2021-06-18] MEDS: DRONEDARONE 400 MG TAB PO SCH (16:31)
[2021-06-18] MEDS: BALSAM PERU/CASTOR OIL 60 GM OINT...G. TP SCH (17:00)
[2021-06-18] MEDS ORDERED: AMLODIPINE BESYLATE 5 MG TAB PO SCH (21:00)
[2021-06-19] VITALS: BP 149/98
[2021-06-19] MEDS: PIPERACILLIN/TAZOBACTAM 2.25 GM in SODIUM CHLORIDE 0.9% 50ML 50 ML IV SCH ×2 (02:40→09:38)
[2021-06-19 04:00] VITALS: BP 100/61
[2021-06-19 07:14] LABS: BASOPHILS % 0.4 % (0.0-1.0); EOSINOPHILS # (AUTO) 0.4 (0.0-0.4); EOSINOPHILS % 4.6 % (0.0-6.0); HEMATOCRIT 40.4 % (38.2-49.6); HEMOGLOBIN 13.2 g/dL (14.0-18.0); LYMPHOCYTES # (AUTO) 2.9 (1.0-3.2); LYMPHOCYTES % 30.6 % (18.0-39.1); MEAN CORPUSCULAR HGB CONC 32.7 g/dL (31-35); MEAN CORPUSCULAR VOLUME 85.6 fL (81-99); MONOCYTES # (AUTO) 1.1 (0.2-0.8); MONOCYTES % 11.3 % (4.4-11.3); NEUTROPHILS # (AUTO) 4.9 (2.1-6.9); NEUTROPHILS % 52.6 % (38.7-80.0); PLATELET COUNT 230 x10e3/uL (140-360); RED BLOOD COUNT 4.72 x10e6/uL (4.3-5.7); RED CELL DISTRIBUTION WIDTH 14.6 % (11.7-14.4)
[2021-06-19 07:42] VITALS: BP 131/91
[2021-06-19 07:43] LABS: ALBUMIN 3.3 g/dL (3.5-5.0); ALBUMIN/GLOBULIN RATIO 0.8 (0.8-2.0); ANION GAP 12.3 mmol/L (8-16); CALCIUM 9.1 mg/dL (8.4-10.2); CREATININE, SERUM 1.74 mg/dL (0.72-1.25); MAGNESIUM 1.7 MG/DL (1.3-2.1); POTASSIUM 4.3 mmol/L (3.5-5.1)
[2021-06-19 08:11] VITALS: BP 131/91
[2021-06-19] MEDS ORDERED: METOPROLOL SUCCINATE 25 MG TAB XL PO SCH (09:00)
[2021-06-19] MEDS ORDERED: SENNOSIDES 8.6 MG TAB PO SCH (09:00)
[2021-06-19] MEDS: NYSTATIN 15 GM POWDER UD BTL TOP SCH ×2 (09:00→09:39)
[2021-06-19] MEDS: HYDRALAZINE HCL 25 MG TAB PO SCH (09:38)
[2021-06-19] MEDS: DRONEDARONE 400 MG TAB PO SCH (09:38)
[2021-06-19] MEDS: DOCUSATE SODIUM 100 MG CAP PO SCH (09:38)
[2021-06-19] MEDS: BALSAM PERU/CASTOR OIL 60 GM OINT...G. TP SCH (09:39)
[2021-06-19] MEDS ORDERED: VENELEX OINTMEN60 GM TP (11:09)
[2021-06-19] MEDS ORDERED: FLUCONAZOLE100 MG PO (11:09)
[2021-06-19] MEDS ORDERED: NYAMYC15 GM TOP (11:09)
[2021-06-19] MEDS ORDERED: CEPHALEXIN500 MG PO (11:09)
[2021-06-19 12:15] VITALS: BP 115/70
== END 2021-06-19 13:13 | disposition home or self-care (01) | DRG 603 ==
LOC: ER 14:52 → ERHOLD 15:53 → MED/SURG2 18:24
PROVIDERS: ADMIT Internal Medicine; ATTEND Internal Medicine
DX: L03.314 Cellulitis of groin (principal); N39.0 Urinary tract infection, site not specified; N17.9 Acute kidney failure, unspecified; B37.49 Other urogenital candidiasis; N48.22 Cellulitis of corpus cavernosum and penis; B37.2 Candidiasis of skin and nail; L30.4 Erythema intertrigo; I12.9 Hypertensive chronic kidney disease with stage 1 through stage 4 chronic kidney disease, or unspecified chronic kidney disease; Z85.51 Personal history of malignant neoplasm of bladder; I69.322 Dysarthria following cerebral infarction; I48.0 Paroxysmal atrial fibrillation; I69.320 Aphasia following cerebral infarction; N18.32 Chronic kidney disease, stage 3b; Z20.822 Contact with and (suspected) exposure to COVID-19
CPT/HCPCS: 36415; 74230; 80053; 81001; 82550; 82553; 83735; 84484; 85025; 85610; 85730; 87040; 87086; 94799; 97139; 99251; 99284; J1450; J2543; J3370; J7030; J7050; U0002

== ENCOUNTER → 2021-08-16 | Outpatient (CLI) | payer MEDICARE, OTHER ==
[~2021-08-16] MED LIST changes: +FLUCONAZOLE100 MG PO; +NYAMYC15 GM TOP; +PANTOPRAZOLE SO20 MG; +VENELEX OINTMEN60 GM TP
== END ==
LOC: RAD 15:04
PROVIDERS: ATTEND Internal Medicine
DX: R05.9 Cough, unspecified (principal); R13.10 Dysphagia, unspecified
CPT/HCPCS: 71046

== ENCOUNTER 2022-01-22 10:59 | Inpatient (IN) | payer MEDICARE, OTHER ==
[~2022-01-22] VITALS: Ht 170.2 cm; Wt 83.9 kg
[2022-01-22] MEDS ORDERED: SODIUM CHLORIDE 0.9% 1000ML 1,000 ML IV ONE (11:30)
[2022-01-22] MEDS ORDERED: ACETAMINOPHEN 650 MG SUPP PR ONE (11:30)
[2022-01-22 11:42] LABS: BASOPHILS # (AUTO) 0.1 (0.0-0.1); BASOPHILS % 0.4 % (0.0-1.0); EOSINOPHILS # (AUTO) 0.3 (0.0-0.4); EOSINOPHILS % 2.2 % (0.0-6.0); HEMATOCRIT 46.7 % (38.2-49.6); HEMOGLOBIN 14.5 g/dL (14.0-18.0); LYMPHOCYTES # (AUTO) 1.3 (1.0-3.2); LYMPHOCYTES % 11.3 % (18.0-39.1); MEAN CORPUSCULAR HEMOGLOBIN 27.6 pg (28-32); MEAN CORPUSCULAR VOLUME 88.8 fL (81-99); MONOCYTES # (AUTO) 1.2 (0.2-0.8); MONOCYTES % 9.9 % (4.4-11.3); NEUTROPHILS # (AUTO) 8.9 (2.1-6.9); NEUTROPHILS % 75.1 % (38.7-80.0); PLATELET COUNT 284 x10e3/uL (140-360); RED BLOOD COUNT 5.26 x10e6/uL (4.3-5.7); RED CELL DISTRIBUTION WIDTH 14.1 % (11.7-14.4)
[2022-01-22 11:52] LABS: INR 0.98; PARTIAL THROMBOPLASTIN TIME 31.7 seconds (23.8-35.5); PROTHROMBIN TIME 13.9 seconds (11.9-14.5)
[2022-01-22] MEDS ORDERED: ACETAMINOPHEN 1000 MG/100 ML IV STA (11:54)
[2022-01-22 11:55] LABS: CLARITY,URINE TURBID (CLEAR); COLOR,URINE YELLOW (YELLOW); KETONES,URINE NEGATIVE (NEGATIVE); LEUKOCYTE ESTERASE ,URINE MODERATE (NEGATIVE); NITRITE,URINE NEGATIVE (NEGATIVE); PROTEIN,URINE DIPSTICK 2+ (NEGATIVE); URINE UROBILINOGEN 0.2 mg/dL (0.2 - 1)
[2022-01-22 11:58] LABS: ALBUMIN 3.6 g/dL (3.5-5.0); ALBUMIN/GLOBULIN RATIO 0.7 (0.8-2.0); ANION GAP 21.4 mmol/L (8-16); CALCIUM 9.8 mg/dL (8.4-10.2); CREATININE, SERUM 1.86 mg/dL (0.72-1.25); POTASSIUM 4.4 mmol/L (3.5-5.1)
[2022-01-22 12:01] LABS: BACTERIA,URINE MANY /HPF; EPITHELIAL CELLS,URINE FEW /LPF; WBC,URINE (MAN) >50 /HPF (0-5)
[2022-01-22 12:04] LABS: CREATINE KINASE MB 1.7 ng/mL (0-5.0)
[2022-01-22] MEDS ORDERED: CEFTRIAXONE 1 GM VIAL ONE (15:04)
[2022-01-22] MEDS ORDERED: SODIUM CHLORIDE 0.9% 1000ML 1,000 ML IV SCH (15:15)
[2022-01-22] MEDS ORDERED: ALBUTEROL/IPRATROPIUM 3 ML NEB NEB ONE (16:30)
[2022-01-22 18:40] VITALS: BP 144/66
[2022-01-22 19:18] LABS: CREATINE KINASE MB 1.8 ng/mL (0-5.0)
[2022-01-22 20:00] VITALS: BP 141/85
[2022-01-22 21:36] VITALS: BP 173/78
[2022-01-22 23:20] VITALS: BP 147/78
[2022-01-22 23:51] LABS: CREATINE KINASE MB 1.4 ng/mL (0-5.0)
[2022-01-23 05:30] VITALS: BP 155/90
[2022-01-23 06:58] LABS: BASOPHILS # (AUTO) 0.1 (0.0-0.1); BASOPHILS % 0.5 % (0.0-1.0); EOSINOPHILS # (AUTO) 0.3 (0.0-0.4); EOSINOPHILS % 2.5 % (0.0-6.0); HEMATOCRIT 39.4 % (38.2-49.6); HEMOGLOBIN 12.8 g/dL (14.0-18.0); LYMPHOCYTES # (AUTO) 1.8 (1.0-3.2); LYMPHOCYTES % 16.4 % (18.0-39.1); MEAN CORPUSCULAR HEMOGLOBIN 27.7 pg (28-32); MEAN CORPUSCULAR HGB CONC 32.5 g/dL (31-35); MEAN CORPUSCULAR VOLUME 85.3 fL (81-99); MONOCYTES # (AUTO) 1.5 (0.2-0.8); MONOCYTES % 13.6 % (4.4-11.3); NEUTROPHILS # (AUTO) 7.3 (2.1-6.9); PLATELET COUNT 239 x10e3/uL (140-360); RED BLOOD COUNT 4.62 x10e6/uL (4.3-5.7); RED CELL DISTRIBUTION WIDTH 14.2 % (11.7-14.4)
[2022-01-23 07:17] LABS: ALBUMIN/GLOBULIN RATIO 0.7 (0.8-2.0); CALCIUM 8.7 mg/dL (8.4-10.2); CREATININE, SERUM 1.68 mg/dL (0.72-1.25)
[2022-01-23 07:38] LABS: CREATINE KINASE MB 1.8 ng/mL (0-5.0)
[2022-01-23 07:57] VITALS: BP 153/105
[2022-01-23 08:27] VITALS: BP 153/105
[2022-01-23] MEDS ORDERED: LACTATED RINGER'S 1,000 ML INJ ONE (10:00)
[2022-01-23] MEDS ORDERED: HYDRALAZINE HCL 20 MG/ML VIAL IV PRN (10:45)
[2022-01-23] MEDS ORDERED: GUAIFENESIN/DEXTROMETHORPHAN LIQD 5 ML UDC NG PRN (10:45)
[2022-01-23 12:08] VITALS: BP 118/80
[2022-01-23] MEDS: HYDRALAZINE HCL 25 MG TAB PO SCH ×2 (15:00→20:41)
[2022-01-23] MEDS: ALBUTEROL/IPRATROPIUM 3 ML NEB NEB PRN ×2 (15:11→19:32)
[2022-01-23 15:30] VITALS: BP 139/78
[2022-01-23] MEDS: ENOXAPARIN SOD INJ 40 MG/0.4 ML SYR SC SCH (17:00)
[2022-01-23 20:00] VITALS: BP 125/64
[2022-01-23] MEDS: AMLODIPINE BESYLATE 5 MG TAB PO SCH (20:41)
[2022-01-24] VITALS (7 sets, daily range): BP systolic 118–132; BP diastolic 78–91
[2022-01-24] MEDS: ALBUTEROL/IPRATROPIUM 3 ML NEB NEB PRN ×4 (00:05→19:47)
[2022-01-24 06:03] LABS: BASOPHILS % 0.3 % (0.0-1.0); EOSINOPHILS # (AUTO) 0.5 (0.0-0.4); EOSINOPHILS % 3.8 % (0.0-6.0); HEMATOCRIT 37.2 % (38.2-49.6); HEMOGLOBIN 12.2 g/dL (14.0-18.0); LYMPHOCYTES # (AUTO) 1.8 (1.0-3.2); LYMPHOCYTES % 15.6 % (18.0-39.1); MEAN CORPUSCULAR HEMOGLOBIN 27.6 pg (28-32); MEAN CORPUSCULAR HGB CONC 32.8 g/dL (31-35); MEAN CORPUSCULAR VOLUME 84.2 fL (81-99); MONOCYTES # (AUTO) 1.6 (0.2-0.8); MONOCYTES % 13.7 % (4.4-11.3); NEUTROPHILS # (AUTO) 7.7 (2.1-6.9); NEUTROPHILS % 65.9 % (38.7-80.0); PLATELET COUNT 233 x10e3/uL (140-360); RED BLOOD COUNT 4.42 x10e6/uL (4.3-5.7); RED CELL DISTRIBUTION WIDTH 13.9 % (11.7-14.4)
[2022-01-24 06:48] LABS: ALBUMIN 2.8 g/dL (3.5-5.0); ALBUMIN/GLOBULIN RATIO 0.7 (0.8-2.0); CALCIUM 8.7 mg/dL (8.4-10.2); CREATININE, SERUM 1.41 mg/dL (0.72-1.25); MAGNESIUM 1.8 MG/DL (1.3-2.1)
[2022-01-24] MEDS: HYDRALAZINE HCL 25 MG TAB PO SCH ×3 (08:58→23:55)
[2022-01-24] MEDS: DOCUSATE SODIUM 100 MG CAP PO SCH (08:59)
[2022-01-24] MEDS: SENNOSIDES 8.6 MG TAB PO SCH (08:59)
[2022-01-24] MEDS: PANTOPRAZOLE SOD 40 MG TABEC PO SCH (08:59)
[2022-01-24] MEDS: ENOXAPARIN SOD INJ 40 MG/0.4 ML SYR SC SCH (17:13)
[2022-01-24] MEDS: AMLODIPINE BESYLATE 5 MG TAB PO SCH (23:56)
[2022-01-25] VITALS (7 sets, daily range): BP systolic 103–172; BP diastolic 66–115
[2022-01-25] MEDS: ALBUTEROL/IPRATROPIUM 3 ML NEB NEB PRN ×4 (00:05→23:50)
[2022-01-25 06:43] LABS: BASOPHILS # (AUTO) 0.1 (0.0-0.1); BASOPHILS % 0.6 % (0.0-1.0); EOSINOPHILS # (AUTO) 0.6 (0.0-0.4); EOSINOPHILS % 7.1 % (0.0-6.0); HEMATOCRIT 37.8 % (38.2-49.6); HEMOGLOBIN 12.2 g/dL (14.0-18.0); LYMPHOCYTES # (AUTO) 1.3 (1.0-3.2); LYMPHOCYTES % 14.7 % (18.0-39.1); MEAN CORPUSCULAR HEMOGLOBIN 27.1 pg (28-32); MEAN CORPUSCULAR HGB CONC 32.3 g/dL (31-35); MONOCYTES % 11.3 % (4.4-11.3); NEUTROPHILS # (AUTO) 5.5 (2.1-6.9); NEUTROPHILS % 65.4 % (38.7-80.0); PLATELET COUNT 226 x10e3/uL (140-360); RED CELL DISTRIBUTION WIDTH 13.9 % (11.7-14.4)
[2022-01-25 07:10] LABS: ALBUMIN 2.8 g/dL (3.5-5.0); ALBUMIN/GLOBULIN RATIO 0.7 (0.8-2.0); ANION GAP 15.9 mmol/L (8-16); CALCIUM 9.1 mg/dL (8.4-10.2); CREATININE, SERUM 1.36 mg/dL (0.72-1.25); MAGNESIUM 1.7 MG/DL (1.3-2.1); POTASSIUM 3.9 mmol/L (3.5-5.1)
[2022-01-25] MEDS: PANTOPRAZOLE SOD 40 MG TABEC PO SCH (09:32)
[2022-01-25] MEDS: SENNOSIDES 8.6 MG TAB PO SCH (09:32)
[2022-01-25] MEDS: HYDRALAZINE HCL 25 MG TAB PO SCH ×2 (09:32→15:00)
[2022-01-25] MEDS: DOCUSATE SODIUM 100 MG CAP PO SCH (09:32)
[2022-01-25] MEDS: METOPROLOL SUCCINATE 25 MG TAB XL PO SCH (19:41)
[2022-01-25] MEDS: DILTIAZEM HCL 30 MG TAB PO SCH (19:42)
[2022-01-25] MEDS: APIXABAN 5 MG TABLET PO SCH (19:42)
[2022-01-26] MEDS: HYDRALAZINE HCL 25 MG TAB PO SCH ×2 (00:25→08:47)
[2022-01-26 01:04] VITALS: BP 120/66
[2022-01-26 04:34] VITALS: BP 136/93
[2022-01-26 06:14] LABS: BASOPHILS # (AUTO) 0.1 (0.0-0.1); BASOPHILS % 1.2 % (0.0-1.0); EOSINOPHILS # (AUTO) 0.5 (0.0-0.4); EOSINOPHILS % 7.5 % (0.0-6.0); HEMATOCRIT 41.4 % (38.2-49.6); HEMOGLOBIN 12.4 g/dL (14.0-18.0); LYMPHOCYTES # (AUTO) 1.2 (1.0-3.2); LYMPHOCYTES % 16.9 % (18.0-39.1); MEAN CORPUSCULAR VOLUME 93.5 fL (81-99); MONOCYTES # (AUTO) 0.7 (0.2-0.8); MONOCYTES % 10.2 % (4.4-11.3); NEUTROPHILS # (AUTO) 4.6 (2.1-6.9); NEUTROPHILS % 63.4 % (38.7-80.0); PLATELET COUNT 181 x10e3/uL (140-360); RED BLOOD COUNT 4.43 x10e6/uL (4.3-5.7); RED CELL DISTRIBUTION WIDTH 14.6 % (11.7-14.4)
[2022-01-26] MEDS: ALBUTEROL/IPRATROPIUM 3 ML NEB NEB PRN (06:20)
[2022-01-26 06:43] LABS: ALBUMIN 2.6 g/dL (3.5-5.0); ALBUMIN/GLOBULIN RATIO 0.6 (0.8-2.0); CREATININE, SERUM 1.47 mg/dL (0.72-1.25); MAGNESIUM 1.8 MG/DL (1.3-2.1)
[2022-01-26 08:20] VITALS: BP 116/79
[2022-01-26 08:40] VITALS: BP 116/79
[2022-01-26] MEDS: SENNOSIDES 8.6 MG TAB PO SCH (08:45)
[2022-01-26] MEDS: DILTIAZEM HCL 30 MG TAB PO SCH (08:46)
[2022-01-26] MEDS: APIXABAN 5 MG TABLET PO SCH (08:47)
[2022-01-26] MEDS: PANTOPRAZOLE SOD 40 MG TABEC PO SCH (08:47)
[2022-01-26] MEDS: DOCUSATE SODIUM 100 MG CAP PO SCH (08:47)
[2022-01-26] MEDS: METOPROLOL SUCCINATE 25 MG TAB XL PO SCH (08:48)
[2022-01-26] MEDS ORDERED: CARDIZEM30 MG PO (09:12)
[2022-01-26] MEDS ORDERED: ELIQUIS5 MG PO (09:12)
[2022-01-26] MEDS ORDERED: TOPROL XL25 MG PO (09:12)
[2022-01-26] MEDS ORDERED: CIPROFLOXACIN500 MG PO (09:12)
[2022-01-26] MEDS ORDERED: IPRAT-ALBUT 0.5-3 ML NEB (09:39)
[2022-01-26 12:07] VITALS: BP 122/76
[2022-01-26] MEDS ORDERED: CIPROFLOXACIN 500 MG TAB PO SCH (17:00)
[2022-01-26] MEDS ORDERED: DRONEDARONE 400 MG TAB PO SCH (21:00)
== END 2022-01-26 14:16 | disposition home or self-care (01) | DRG 698 ==
LOC: ER 11:36 → ERHOLD 15:16 → MED/SURG3 18:04
PROVIDERS: ADMIT Internal Medicine; ATTEND Internal Medicine
DX: T83.518A Infection and inflammatory reaction due to other urinary catheter, initial encounter (principal); A41.9 Sepsis, unspecified organism; R53.2 Functional quadriplegia; N30.00 Acute cystitis without hematuria; I69.351 Hemiplegia and hemiparesis following cerebral infarction affecting right dominant side; R47.01 Aphasia; I48.0 Paroxysmal atrial fibrillation; I12.9 Hypertensive chronic kidney disease with stage 1 through stage 4 chronic kidney disease, or unspecified chronic kidney disease; N18.32 Chronic kidney disease, stage 3b; K21.9 Gastro-esophageal reflux disease without esophagitis; E78.5 Hyperlipidemia, unspecified; K74.60 Unspecified cirrhosis of liver; R41.82 Altered mental status, unspecified; B96.1 Klebsiella pneumoniae [K. pneumoniae] as the cause of diseases classified elsewhere; B96.20 Unspecified Escherichia coli [E. coli] as the cause of diseases classified elsewhere; B96.4 Proteus (mirabilis) (morganii) as the cause of diseases classified elsewhere; N31.9 Neuromuscular dysfunction of bladder, unspecified; Z85.51 Personal history of malignant neoplasm of bladder; Z88.5 Allergy status to narcotic agent; Z74.01 Bed confinement status; Z20.822 Contact with and (suspected) exposure to COVID-19; Z95.818 Presence of other cardiac implants and grafts
CPT/HCPCS: 36415; 70450; 71045; 74176; 74230; 80053; 81001; 82140; 82550; 82553; 83605; 83735; 83880; 84484; 85025; 85610; 85730; 87040; 87086; 87186; 87400; 93005; 94640; 94799; 99285; J0696; J1650; J2543; J7030; J7121